=== PATIENT | male | born 1970 | race Caucasian/White ===

== ENCOUNTER 2020-06-30 06:27 | Emergency (ER) | payer OTHER ==
[~2020-06-30] VITALS: Ht 182.9 cm; Wt 99.8 kg
[2020-06-30] MEDS ORDERED: HYDROCODON-ACE1 EAC7 PO (06:46)
[2020-06-30] MEDS ORDERED: AMOXICILLIN875 MG PO (06:46)
[2020-06-30 06:50] VITALS: BP 140/74
== END 2020-06-30 06:52 | disposition home or self-care (01) ==
LOC: M.ERS 06:27
DX: K02.9 Dental caries, unspecified (principal)

== ENCOUNTER 2021-06-27 21:22 | Inpatient (IN) | payer OTHER ==
[~2021-06-27] VITALS: Ht 180.3 cm; Wt 77.6 kg
[~2021-06-27 21:22] MED LIST: AMOXICILLIN875 MG PO; HYDROCODON-ACE1 EAC7 PO
[2021-06-27 21:24] VITALS: BP 110/58
[2021-06-27 21:48] LABS: ABSOLUTE BASOPHILS 0.1 thou/uL (0.0-0.2); ABSOLUTE EOSINOPHILS 0.2 thou/uL (0.0-0.7); ABSOLUTE LYMPHOCYTES 2.3 thou/uL (0.8-5.3); ABSOLUTE MONOCYTES 0.7 thou/uL (0.0-1.2); ABSOLUTE NEUTROPHILS 4.3 thou/uL (1.6-8.1); BASOPHILS 1.1 %; EOSINOPHILS 2.8 %; HEMATOCRIT 38.4 % (42.0-52.0); HEMOGLOBIN 12.6 gm/dL (14.0-18.0); LYMPHOCYTES 30.5 %; MCH 31.5 pg (26.0-34.0); MCHC 32.9 g/dL (28.0-37.0); MONOCYTES 9.1 %; MPV 8.1 fl. (7.2-11.1); NUCLEATED RBCS 0 /100WBC; PLATELET COUNT* 118 thou/uL (150-400); POLYS 56.5 %; RBC 4.01 mil/uL (4.50-6.00); RDW-CV 14.3 % (10.5-14.5); WBC 7.7 thou/uL (4.0-11.0)
[2021-06-27 21:56] LABS: CALCIUM 8.4 mg/dL (8.5-10.1); CREATININE 1.1 mg/dL (0.6-1.3); POTASSIUM 3.6 mmol/L (3.5-5.1)
[2021-06-27 22:00] LABS: ALBUMIN 3.5 g/dL (3.4-5.0); TOTAL BILIRUBIN 0.1 mg/dL (<0.1-1.0); TOTAL PROTEIN 6.5 g/dL (6.4-8.2)
[2021-06-27] MEDS ORDERED: PROZAC10 M1 PO (22:48)
[2021-06-28] VITALS (17 sets, daily range): BP systolic 109–135; BP diastolic 70–86
[2021-06-28 00:35] LABS: URINE BILIRUBIN NEGATIVE (Negative); URINE BLOOD NEGATIVE (Negative); URINE CLARITY CLEAR; URINE COLOR STRAW; URINE GLUCOSE-RANDOM NEGATIVE (Negative); URINE KETONES NEGATIVE (Negative); URINE LEUKOCYTES-REFLEX NEGATIVE (Negative); URINE NITRITE-REFLEX NEGATIVE (Negative); URINE PROTEIN NEGATIVE (Negative); URINE SPECIFIC GRAVITY <= 1.005 (1.005-1.030); URINE UROBILINOGEN 0.2 E.U./dl (0.2-1.0)
[2021-06-28 00:43] LABS: AMP/METHAMP Negative (Negative); BARBITURATES Negative (Negative); BENZODIAZEPINES Negative (Negative); COCAINE Negative (Negative); METHADONE Negative (Negative); OPIATES Negative (Negative); PCP Negative (Negative); THC POSITIVE (Negative)
[2021-06-28 07:26] LABS: BE -0.1 mmol/L (-2 to +3); PCO2 38.3 mmHg (35.0-45.0); PO2 91.8 mmHg (75.0-100.0); pH 7.418 (7.340-7.450)
[2021-06-28 09:59] LABS: CALCIUM 8.4 mg/dL (8.5-10.1); POTASSIUM 4.4 mmol/L (3.5-5.1)
[2021-06-28 10:02] LABS: MAGNESIUM 2.2 mg/dL (1.8-2.4); PHOSPHORUS* 2.7 mg/dL (2.5-4.9)
--- NOTE | 2021-06-28 12:53 | EKG ---
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
[2021-06-28 14:37] LABS: ALBUMIN 3.3 g/dL (3.4-5.0); CALCIUM 8.3 mg/dL (8.5-10.1); CREATININE 0.9 mg/dL (0.6-1.3); POTASSIUM 4.3 mmol/L (3.5-5.1); TOTAL BILIRUBIN 0.2 mg/dL (<0.1-1.0); TOTAL PROTEIN 6.1 g/dL (6.4-8.2)
[2021-06-29] VITALS (24 sets, daily range): BP systolic 98–127; BP diastolic 57–95
[2021-06-29 05:31] LABS: CHOLESTEROL 213 mg/dL (<200); HDL CHOLESTEROL 33 mg/dL (>40); LDL CHOLESTEROL 163 mg/dL (<100); TC:HDL 6.5 Ratio (Not establshd); TRIGLYCERIDE 88 mg/dL (<150); VLDL 18 mg/dL (<40)
[2021-06-29 05:42] LABS: SERUM ASSESSMENT Clear
[2021-06-30] VITALS (24 sets, daily range): BP systolic 72–151; BP diastolic 51–91
[2021-06-30 03:06] LABS: GLYCOHEMOGLOBIN (HGB A1C) 5.7 % (4.8-5.6)
[2021-07-01] VITALS (10 sets, daily range): BP systolic 99–135; BP diastolic 64–80
[2021-07-02 07:40] VITALS: BP 113/80
[2021-07-02] MEDS ORDERED: ZYPREXA 5 MG TAB5 M1 PO (09:52)
[2021-07-02 16:38] VITALS: BP 123/80
[2021-07-02 16:39] VITALS: BP 123/80
[2021-07-03 07:59] VITALS: BP 131/67
[2021-07-03 20:00] VITALS: BP 128/76
[2021-07-04 04:57] VITALS: BP 113/63
[2021-07-04 07:30] VITALS: BP 128/83
[2021-07-04 11:30] VITALS: BP 111/74
[2021-07-04 16:00] VITALS: BP 124/82
[2021-07-04 20:00] VITALS: BP 133/84
[2021-07-05 08:11] VITALS: BP 117/80
[2021-07-05 12:00] VITALS: BP 127/81
[2021-07-05 16:00] VITALS: BP 119/81
[2021-07-05] MEDS ORDERED: PROZAC10 M1 PO (18:19)
[2021-07-05] MEDS ORDERED: ZYPREXA5 MG PO (18:19)
[2021-07-05 18:34] VITALS: BP 119/81
[2021-07-05 19:03] VITALS: BP 119/81
== END 2021-07-05 19:03 | disposition home or self-care (01) | DRG 917 ==
LOC: M.ERS 21:22 → M.TBA-ER 06-28 00:03 → M.ICU 06-28 09:00 → M.2W 07-03 17:27
PROVIDERS: Emergency Medicine; Internal Medicine; ADMIT Family Medicine; ATTEND Family Medicine
DX: T43.591A Poisoning by other antipsychotics and neuroleptics, accidental (unintentional), initial encounter (principal); G92.8 Other toxic encephalopathy; J69.0 Pneumonitis due to inhalation of food and vomit; F32.9 Major depressive disorder, single episode, unspecified; D64.9 Anemia, unspecified; T14.91XA Suicide attempt, initial encounter; Y93.89 Activity, other specified; Y92.89 Other specified places as the place of occurrence of the external cause; Y99.8 Other external cause status; Z20.822 Contact with and (suspected) exposure to COVID-19

== ENCOUNTER 2021-07-13 16:12 | Emergency (ER) | payer OTHER ==
[~2021-07-13] VITALS: Ht 182.9 cm; Wt 81.7 kg
[~2021-07-13 16:12] MED LIST changes: +PROZAC10 M1 PO; +ZYPREXA 5 MG TAB5 M1 PO; +ZYPREXA5 MG PO
[2021-07-13 16:59] LABS: ABSOLUTE BASOPHILS 0.1 thou/uL (0.0-0.2); ABSOLUTE EOSINOPHILS 0.2 thou/uL (0.0-0.7); ABSOLUTE LYMPHOCYTES 1.9 thou/uL (0.8-5.3); ABSOLUTE MONOCYTES 0.7 thou/uL (0.0-1.2); ABSOLUTE NEUTROPHILS 4.9 thou/uL (1.6-8.1); BASOPHILS 1.3 %; EOSINOPHILS 2.6 %; HEMATOCRIT 41.3 % (42.0-52.0); HEMOGLOBIN 13.9 gm/dL (14.0-18.0); LYMPHOCYTES 24.1 %; MCHC 33.7 g/dL (28.0-37.0); MCV 91.9 fL (80.0-100.0); MONOCYTES 9.4 %; MPV 7.1 fl. (7.2-11.1); NUCLEATED RBCS 0 /100WBC; PLATELET COUNT* 251 thou/uL (150-400); POLYS 62.6 %; RDW-CV 13.9 % (10.5-14.5); WBC 7.9 thou/uL (4.0-11.0)
[2021-07-13 17:06] LABS: CALCIUM 8.7 mg/dL (8.5-10.1); CREATININE 1.2 mg/dL (0.6-1.3); POTASSIUM 4.6 mmol/L (3.5-5.1)
[2021-07-13 17:10] LABS: ALBUMIN 3.4 g/dL (3.4-5.0); TOTAL BILIRUBIN 0.1 mg/dL (<0.1-1.0); TOTAL PROTEIN 6.7 g/dL (6.4-8.2)
[2021-07-13] MEDS ORDERED: BENTYL 10 MG CA10 M1 PO (18:28)
[2021-07-13 18:45] VITALS: BP 95/56
--- NOTE | 2021-07-14 08:37 | EKG ---
[place] [address] ELECTROCARDIOGRAM REPORT Name: АННА RUANO Room: [facility]#: [id number] Admission: 07/13/21 Attend Phys: Discharge: 07/13/21 Date of : 70 Date of Service: 07/13/21 1637 Report #: [id number] THIS REPORT FOR: //name// [facility] ED Test Date: 2021-07-13 Test Time: 16:37:22 Pat Name: АННА RUANO Department: Room: Gender: Ways Operator: : 1970 Requested By: Shelley Diego Order Number: [id number] MD: Enzo Larson Measurements Intervals [place] Rate: 83 P: 76 RI: 136 QRS: 72 QRSD: 91 T: 71 QT: 348 QTc: 409 Interpretive Statements Sinus rhythm Compared to ECG 06/27/2021 21:23:08 No significant changes Electronically Signed On 07-14-2021 8:37:35 CDT by Enzo Larson [email or web address] <ELECTRONICALLY SIGNED> By: Enzo Larson MD, [facility] 07/14/21 0837 1637 1637 Enzo Larson MD, [facility] /EPI
== END 2021-07-13 18:46 | disposition home or self-care (01) ==
LOC: M.ERS 16:12
PROVIDERS: Physician Assistant
DX: R10.30 Lower abdominal pain, unspecified (principal); Z20.822 Contact with and (suspected) exposure to COVID-19; R11.2 Nausea with vomiting, unspecified; F90.9 Attention-deficit hyperactivity disorder, unspecified type; F17.210 Nicotine dependence, cigarettes, uncomplicated; Z79.899 Other long term (current) drug therapy